=== PATIENT | female | born 1930 | race Caucasian/White ===

== ENCOUNTER 2016-10-15 21:18 | Emergency (ER) | payer OTHER ==
[~2016-10-15] VITALS: Ht 162.6 cm; Wt 62.7 kg
[~2016-10-15 21:18] MED LIST: ALPR0.25 PO; ASPI-535 PO; CARV12.579 PO; CELE-54 PO; CETI-240 PO; CHOL100062 PO; DOCU-144 PO; FER325 PO; FOLI-49 PO; GABA300C16 PO; LEVO25TA53 PO; LOSA100T7 PO; RANI150T5 PO; TYL500 PO
[2016-10-15 21:49] VITALS: Ht 162.6 cm; Wt 62.7 kg
[2016-10-16] MEDS ORDERED: SOD CHLORIDE 0.9% 500 ML IV STA (01:01)
[2016-10-16] MEDS ORDERED: hydrALAzine 20 MG INJ IV ONE (01:30)
[2016-10-16 01:49] LABS: ADD SCAN DIFF NO
[2016-10-16 01:55] LABS: BASOPHILS % 0.4 % (0.0-2.0); EOSINOPHILS # 0.1 10^3/ul (0.0-0.5); EOSINOPHILS % 0.8 % (0.0-7.0); HEMATOCRIT 28.4 % (37.0-47.0); HEMOGLOBIN 9.8 g/dl (12.0-16.0); LYMPHOCYTES # 1.2 10^3/ul (0.8-2.9); LYMPHOCYTES % 16.1 % (15.0-51.0); MEAN CORPUSCULAR HEMOGLOBIN 35.9 pg (29.0-33.0); MEAN CORPUSCULAR HGB CONC 34.5 g/dl (32.0-37.0); MEAN PLATELET VOLUME 9.5 fl (7.4-10.4); MONOCYTE # 0.5 10^3/ul (0.3-0.9); MONOCYTES % 6.3 % (0.0-11.0); NEUTROPHIL # 5.8 10^3/ul (1.6-7.5); NEUTROPHILS % 75.9 % (39.0-77.0); PLATELET COUNT 239 10^3/UL (140-415); RED BLOOD COUNT 2.73 10^6/ul (4.20-5.40); RED CELL DISTRIBUTION WIDTH 11.7 % (11.5-14.5); WHITE BLOOD COUNT 7.7 10^3/ul (4.8-10.8)
[2016-10-16 02:02] LABS: ADD UMIC NO; UR ASCORBIC ACID NEGATIVE (NEGATIVE); UR BILIRUBIN (Dip) NEGATIVE (NEGATIVE); UR BLOOD (Dip) NEGATIVE (NEGATIVE); UR CLARITY CLEAR (CLEAR); UR COLOR STRAW (YELLOW); UR GLUCOSE (Dip) NEGATIVE (NEGATIVE); UR KETONES (Dip) NEGATIVE (NEGATIVE); UR LEUKOCYTE ESTERASE (Dip) NEGATIVE Leu/ul (NEGATIVE); UR NITRITE (Dip) NEGATIVE (NEGATIVE); UR SPECIFIC GRAVITY (Dip) 1.008 (1.003-1.030); UR TOTAL PROTEIN (Dip) NEGATIVE (NEGATIVE); UR UROBILINOGEN (Dip) NEGATIVE (NEGATIVE)
--- NOTE | 2016-10-16 02:02 | RADRPT ---
PROCEDURE: Portable chest x-ray. CLINICAL INDICATION: Hypertension. TECHNIQUE: Portable AP view of the chest. COMPARISON: 12/06/2015. FINDINGS: There is mild bibasilar atelectasis. No pulmonary edema or conolidation is identified. The cardiac silhouette is enlarged. No pleural effusion is seen. There is no pneumothorax. There is mild dex troscoliosis. IMPRESSION: 1. No evidence of acute cardiopulmonary disease. 2. Enlarged cardiac silhouette. RPTAT: HTAR .Micah Rabago MD, MD Date Time Electronically viewed and signed by .Micah Rabago MD, MD on 10/16/2016 02:02 .R/
[2016-10-16] MEDS ORDERED: POLY17PO6 PO (02:03)
[2016-10-16] MEDS ORDERED: PARO-37 PO (02:03)
--- NOTE | 2016-10-16 02:07 | RADRPT ---
PROCEDURE: CT BRAIN WITHOUT CONTRAST CLINICAL INDICATION: 86-year-old female with syncope. TECHNIQUE: The study was performed utilizing [employer] VCT 64-slice CT scanner. Direct axial sections were obtained from the foramen magnum to the vertex without the use of intravenous contrast material. Sagittal and coronal reformations were obtained. Sagittal and coronal reformations were obtained. One or more the following dose reduction techniques were utilized: automated exposure cont rol, adjustment of the mA and/or kV according to patient's size or use of iterative reconstruction t echnique. The images were viewed on a PACS workstation. CTD/vol = 45.0 mGy; Total Exam DLP = 810.3 mGy-cm. COMPARISON: CT brain August 03, 2015. FINDINGS: There is moderate degree of diffuse cortical and central atrophy with compensatory ventricular enlar gement. There is no evidence for mass effect or midline shift. There are periventricular areas of decreased density consistent with microangiopathic ischemic changes. There is no evidence for acute intra or extra-axial blood. Calcifications are seen within the intracranial carotid arteries bilate rally. The bony calvarium is intact. Hyperostosis frontalis interna is noted. The visualized paranas al sinuses and right mastoid air cells are without significant abnormal soft tissue. There is mild d ependent soft tissue within the left mastoid air cells. IMPRESSION: 1. The intracranial contents are without significant interval change compared to the patient's prio r CT scan from August 03, 2015. 2. Moderate diffuse atrophy. 3. Microangiopathic ischemic changes. 4. Vascular calcifications. 5. Mild dependent left mastoid disease. .Kwaku Romero MD, MD Date Time Electronically viewed and signed by .Kwaku Romero MD, on 10/16/2016 02:06 .Rommel
[2016-10-16 02:13] VITALS: TEMP 98.8
[2016-10-16 02:19] LABS: ANION GAP 18 (8-16); BLOOD UREA NITROGEN 18 mg/dl (7-20); CALCIUM 9.9 mg/dl (8.4-10.2); CARBON DIOXIDE 21 mmol/L (21-31); CHLORIDE 102 mmol/L (97-110); CREATININE 0.87 mg/dl (0.44-1.00); GLUCOSE 123 mg/dl (70-220); POTASSIUM 4.7 mmol/L (3.5-5.1); SODIUM 136 mmol/L (135-144)
[2016-10-16] MEDS ORDERED: LABETALOL HCL 20MG INJ IV ONE (02:30)
[2016-10-16 02:37] LABS: TROPONIN-I < 0.012 ng/ml (0.00-0.12)
[2016-10-16 03:00] VITALS: BP 167/62; PULSE 67; RESP 18
--- NOTE | 2016-10-16 03:04 | ERD ---
ER Documentation Chief Complaint Date/Time DATE: 10/16/16 TIME: 03:02 Chief Complaint dizziness x 1 day HPI This is a very pleasant 86-year-old female complains of dizziness for 1 day. Denies any fevers or chills. Denies any chest pain. Denies palpitations. Denies any current complaints. No nausea no vomiting. ROS All systems reviewed and are negative except as per history of present illness. Medications Home Meds Reported Medications Polyethylene Glycol* (Miralax*) 17 Gm Powd.pack, 8.5 GM PO DAILY, #30 PACKET 10/16/16 Paroxetine Hcl* (Paroxetine*) 20 Mg Tablet, 20 MG PO HS, TAB 10/16/16 Gabapentin* (Gabapentin*) 300 Mg Capsule, 300 MG PO BID, #60 CAP 12/06/15 Celecoxib (Celecoxib) 200 Mg Capsule, 200 MG PO DAILY, #30 08/03/15 Carvedilol* (Carvedilol*) 12.5 Mg Tablet, 12.5 MG PO BID, #60 08/03/15 Folic Acid* (Folic Acid*) 1 Mg Tablet, 1 MG PO DAILY, TAB 12/01/14 Acetaminophen* (Tylenol*) 500 Mg Tab, 1000 MG PO BID Y for PAIN AND OR ELEVATED TEMP, TAB 10/28/14 Cholecalciferol* (Vitamin D3*) 1,000 Unit Tablet, 1000 UNIT PO DAILY, TAB 06/30/14 Ranitidine Hcl* (Ranitidine Hcl*) 150 Mg Tablet, 150 MG PO Q12, TAB 06/30/14 Losartan Potassium* (Losartan Potassium*) 100 Mg Tablet, 100 MG PO DAILY 12/11/12 Aspirin Ec (Aspir 81) 81 Mg Tablet.dr, 81 MG PO DAILY 10/27/11 Discontinued Reported Medications Cetirizine Hcl* (Cetirizine Hcl*) 10 Mg Tablet, 10 MG PO DAILY, #30 TAB 12/06/15 Ferrous Sulfate* (Ferrous Sulfate*) 325 Mg Tabec, 325 MG PO TID, TAB 12/01/14 Alprazolam* (Xanax*) 0.25 Mg Tablet, 0.25 MG PO BID Y for ANXIETY, TAB 10/28/14 Levothyroxine Sodium* (Levothyroxine Sodium*) 25 Mcg Tablet, 25 MCG PO AC BREAKFAST, TAB 07/15/14 Discontinued Scripts Docusate Sodium* (Colace*) 100 Mg Capsule, 100 MG PO BID, #30 Prov:LO WORLEY 12/14/14 Allergies Allergies: Coded Allergies: No Known Drug Allergy (Verified Allergy, Unknown, 12/06/15) PMhx/Soc History of Surgery: Yes (bladder sx, hernia repair umbil) Anesthesia Reaction: No Hx Neurological Disorder: No Hx Respiratory Disorders: No Hx Cardiac Disorders: Yes (Htn) Hx Psychiatric Problems: No (ANXIETY) Hx Miscellaneous Medical Probl: No (recurrent dizziness, HTN, anxiety dis, chronic hyponatremia) Hx Alcohol Use: No Hx Substance Use: No Hx Tobacco Use: No Physical Exam Vitals Vital Signs Date Time Temp Pulse Resp B/P Pulse Ox O2 Delivery O2 Flow Rate FiO2 10/16/16 02:13 98.8 67 18 206/76 100 10/15/16 21:49 98.8 51 20 186/76 98 Physical Exam Const: [] Head: Atraumatic Eyes: Normal Conjunctiva ENT: Normal External Ears, Nose and Mouth. Neck: Full range of motion..~ No meningismus. Resp: Clear to auscultation bilaterally Cardio: Regular rate and rhythm, no murmurs Abd: Soft, non tender, non distended. Normal bowel sounds Skin: No petechiae or rashes Back: No midline or flank tenderness Ext: No cyanosis, or edema Neur: Awake and alert Psych: Normal Mood and Affect Result Diagram: 10/16/16 01310/16/16 0130 Results 24 hrs Laboratory Tests Test 10/16/16 01:30 White Blood Count 7.710^3/ul Red Blood Count 2.7310^6/ul Hemoglobin 9.8g/dl Hematocrit 28.4% Mean Corpuscular Volume 104.0fl Mean Corpuscular Hemoglobin 35.9pg Mean Corpuscular Hemoglobin Concent 34.5g/dl Red Cell Distribution Width 11.7% Platelet Count 48044^3/UL Mean Platelet Volume 9.5fl Neutrophils % 75.9% Lymphocytes % 16.1% Monocytes % 6.3% Eosinophils % 0.8% Basophils % 0.4% Nucleated Red Blood Cells % 0.0/100WBC Neutrophils # 5.810^3/ul Lymphocytes # 1.210^3/ul Monocytes # 0.510^3/ul Eosinophils # 0.110^3/ul Basophils # 0.010^3/ul Nucleated Red Blood Cells # 0.010^3/ul Urine Color STRAW Urine Clarity CLEAR Urine pH 7.0 Urine Specific [place] 1.008 Urine Ketones NEGATIVEmg/dL Urine Nitrite NEGATIVEmg/dL Urine Bilirubin NEGATIVEmg/dL Urine Urobilinogen NEGATIVEmg/dL Urine Leukocyte Esterase NEGATIVELeu/ul Urine Hemoglobin NEGATIVEmg/dL Urine Glucose NEGATIVEmg/dL Urine Total Protein NEGATIVEmg/dl Sodium Level 136mmol/L Potassium Level 4.7mmol/L Chloride Level 102mmol/L Carbon Dioxide Level 21mmol/L Anion Gap 18 Blood Urea Nitrogen 18mg/dl Creatinine 0.87mg/dl Glucose Level 123mg/dl Calcium Level 9.9mg/dl Troponin I < 0.012ng/ml Current Medications Medications (Trade) Dose Ordered Sig/Maximus Route PRN Reason Start Time Stop Time Status Last Admin Dose Admin Sodium Chloride (NS) 500 ml @ 500 mls/hr Q1H STAT IV 10/16/16 01:01 10/16/16 02:00 DC Hydralazine HCl (Apresoline) 10 mg ONCE ONCE IV 10/16/16 01:30 10/16/16 01:31 DC 10/16/16 01:30 Labetalol HCl (Labetalol) 20 mg ONCE ONCE IV 10/16/16 02:30 10/16/16 02:31 DC 10/16/16 02:13 Procedures/MDM EKG: Rate/Rhythm: Normal Sinus Rhythm QRS, ST, T-waves: No changes consistent w/ acute ischemia Impression: No evidence of ischemia or arrhythmia Chest X-ray 1V Interpreted by me: Soft Tissue: No acute abnormalities Bones: No acute abnormalities Mediastinum/Cardiac Silhouette/Lungs: No acute abnormalities CT of the head is negative Patient's blood pressure was elevated (>120/80) but appears stable without evidence of hypertension emergency or urgency. The patient was counseled about the risks of hypertension and urged to pursue outpatient monitoring and therapy within a week with their primary care physician. Departure Diagnosis: Primary Impression: Dizziness Additional Impression: Hypertension Hypertension type: essential hypertension Qualified Code: I10 - Essential hypertension Condition: Serious LO WORLEY Oct 16, 2016 03:04
== END 2016-10-16 03:20 | disposition home or self-care (01) ==
LOC: E/R 21:18
DX: R42 Dizziness and giddiness (principal); I10 Essential (primary) hypertension; Z79.82 Long term (current) use of aspirin
CPT/HCPCS: 36415; 70450; 71010; 80048; 81003; 84484; 85025; 93005; 96374; 96375; 99285; J0360; J7040

== ENCOUNTER 2017-07-25 14:58 | Inpatient (IN) | END 2017-07-28 13:35 | disposition home or self-care (01) | DRG 683 ==

== ENCOUNTER 2017-08-26 13:18 | Emergency (ER) | END 2017-08-26 20:03 | disposition home or self-care (01) ==